=== PATIENT | male | born 1995 ===

== ENCOUNTER 2018-07-23 20:21 | Emergency (ER) | payer OTHER ==
[2018-07-23] MEDS ORDERED: Tetracaine 0.5% OPTH.SOL 15ML* BTL LEFT EYE ONE (21:11)
[2018-07-23] MEDS ORDERED: Tetracaine 0.5% OPTH.SOL 4 ML* 1 DROP BTL ONE (21:24)
[2018-07-23] MEDS ORDERED: Fluorescein Sod TOPICAL 0.6* 0.6 MG TEST OPHTHALMIC ONE (21:25)
[2018-07-23] MEDS ORDERED: Ciprofloxacin 0.3% OPTH.SOL* 2.5 ML BTL LEFT EYE ONE (21:52)
--- NOTE | 2018-07-23 21:56 | UC ---
Eye Complaint HPI - HPI Summary HPI Summary: Patient complains of contact lens stuck in left eye today. Denies vision change , pain. - History of Current Complaint Chief Complaint: UCEye Stated Complaint: EYE COMPLAINT Time Seen by Provider: 07/23/18 21:01 Hx Obtained From: Patient Severity Currently: None Pain Intensity: 0 Pain Scale Used: 0-10 Numeric - Allergies/Home Medications Allergies/Adverse Reactions: Allergies Allergy/AdvReac Type Severity Reaction Status Date / Time No Known Allergies Allergy Verified 07/23/18 20:55 PMH/Surg Hx/FS Hx/Imm Hx - Surgical History Surgical History: None - Family History Known Family History: Positive: None - Social History Alcohol Use: Occasionally Substance Use Type: None Smoking Status (MU): Never Smoked Tobacco Review of Systems Constitutional: Negative Skin: Negative Eyes: Other ENT: Negative Respiratory: Negative Cardiovascular: Negative Gastrointestinal: Negative Genitourinary: Negative Motor: Negative Neurovascular: Negative Musculoskeletal: Negative Neurological: Negative Psychological: Negative All Other Systems Reviewed And Are Negative: Yes Physical Exam - Summary Physical Exam Summary: Corneal abrasion noted horizontally across left pupil. Contact lens removed Triage Information Reviewed: Yes Appearance: Well-Appearing Vital Signs: Initial Vital Signs Temp 98.8 F 07/23/18 20:50 Pulse 66 07/23/18 20:50 Resp 16 07/23/18 20:50 BP 125/75 07/23/18 20:50 Pulse Ox 99 07/23/18 20:50 Vital Signs Reviewed: Yes Eyes: Positive: Other: Neck exam: Normal Respiratory Exam: Normal Cardiovascular Exam: Normal Abdominal Exam: Normal Musculoskeletal Exam: Normal Neurological Exam: Normal Psychological Exam: Normal Skin Exam: Normal Procedures - Eye Procedure Left Alcaine Drops Administered: Yes Eye FB Removal: removal w/ cotton swab - contact lens removed Antibiotic Ointment/Drps Admin: left eye Eye Complaint Course/Dx - Course Course Of Treatment: Patient complains of contact lens stuck in left eye today. Denies vision change, pain. Physical exam:Corneal abrasion noted horizontally across left pupil. Contact lens removed. Ophthalmology Cipro solution 2 drops every 4 hours in left eye. Follow-up with ophthalmology Dr. Garland - Differential Dx/Diagnosis Provider Diagnoses: Corneal abrasion. Contact lens removal Discharge - Sign-Out/Discharge Documenting (check all that apply): Patient Departure All imaging exams completed and their final reports reviewed: No Studies - Discharge Plan Condition: Stable Disposition: HOME Patient Education Materials: Corneal Abrasion (ED) Referrals: No Primary Care Phys,NOPCP [Primary Care Provider] - Michael Garland MD [Medical Doctor] - Additional Instructions: 2 drops of ANTIBIOTIC IN LEFT EYE EVERY 4 HOURS. Follow-up with ophthalmology Dr. Garland tomorrow for further evaluation. - Billing Disposition and Condition Condition: STABLE Disposition: Home - Attestation Statements Provider Attestation: I was available for consult. This patient was seen by the IRINA. The patient was not presented to, seen by, or examined by me. -Artemio
== END 2018-07-23 22:05 | disposition home or self-care (01) ==
LOC: UCEAST 20:21
DX: H18.822 Corneal disorder due to contact lens, left eye (principal); T15.02XA Foreign body in cornea, left eye, initial encounter; X58.XXXA Exposure to other specified factors, initial encounter; Y93.9 Activity, unspecified; Y92.9 Unspecified place or not applicable
CPT/HCPCS: 65220; 99201; A9270-GY; G0463